=== PATIENT | female | born 1965 | race Caucasian/White ===

== ENCOUNTER → 2017-09-15 | Outpatient (CLI) | payer OTHER ==
[~2017-09-15] MED LIST: ALEVE220 MG PO; ASPRIN; CIPRO500 MG PO; LISINOPRIL/HCTZ1 TAB PO; LORTAB 5/500 501 TAB PO; METRONIDAZOLE500 MG PO; MOBIC 7.5MG7.5 MG PO; ZYLOPRIM 100MG100 MG PO
== END ==
LOC: COL.LAB 08:54
DX: Z01.812 Encounter for preprocedural laboratory examination (principal)

== ENCOUNTER 2017-09-25 08:01 | Outpatient (RCR) | payer OTHER | END 2017-09-28 11:29 | disposition home or self-care (01) | LOC: MKS.ESL.PT 08:01 | DX: Z01.818 Encounter for other preprocedural examination (principal); M25.561 Pain in right knee ==

== ENCOUNTER 2017-10-02 05:12 | Inpatient (IN) | payer OTHER ==
[~2017-10-02] VITALS: Ht 170.2 cm; Wt 115.2 kg
[2017-10-02] VITALS (11 sets, daily range): BP systolic 92–166; BP diastolic 48–454; PULSE 46–71; TEMP 97–98.4
[2017-10-02] MEDS ORDERED: ZESTRIL 5MG5 MG PO (05:46)
[2017-10-02] MEDS ORDERED: RELAFEN750 MG PO (05:47)
[2017-10-02] MEDS ORDERED: PLAQUENIL 200M200 MG PO (05:48)
[2017-10-02] MEDS ORDERED: METHOTREXA2.5 MG/TAB PO (05:49)
[2017-10-02] MEDS ORDERED: FLEXERIL 1010 MG/TAB PO (05:50)
[2017-10-03 03:42] VITALS: BP 146/69; PULSE 62; TEMP 98.3
[2017-10-03 07:54] LABS: HEMATOCRIT 32.3 % (37.0-47.0); HEMOGLOBIN 11.3 g/dl (12.5-16.0)
[2017-10-03 08:01] VITALS: BP 152/66; PULSE 67; TEMP 98.7
[2017-10-03 11:45] VITALS: BP 155/75; PULSE 57; TEMP 98.5
[2017-10-03 16:00] VITALS: BP 154/76; PULSE 73; TEMP 98.7
[2017-10-03 18:54] VITALS: BP 156/73; PULSE 83; TEMP 98.4
[2017-10-03 23:26] VITALS: BP 152/70; PULSE 81; TEMP 98.2
[2017-10-04 03:45] VITALS: BP 156/75; PULSE 79; TEMP 98
[2017-10-04 06:53] LABS: HEMATOCRIT 29.2 % (37.0-47.0); HEMOGLOBIN 9.9 g/dl (12.5-16.0)
[2017-10-04 07:04] VITALS: BP 139/76; PULSE 79; TEMP 99.1
[2017-10-04] MEDS ORDERED: XARELTO10 MG PO (07:20)
[2017-10-04] MEDS ORDERED: NORCO 325 MG-7.1 TAB PO (07:21)
[2017-10-04] MEDS ORDERED: ROXICODONE 55 MG/TAB PO (07:22)
[2017-10-04] MEDS ORDERED: COLACE 100100 MG/CAP PO (07:23)
[2017-10-04 11:28] VITALS: BP 164/87; PULSE 80; TEMP 99
== END 2017-10-04 14:15 | disposition home or self-care (01) | DRG 470 ==
LOC: SDCO 05:12 → EDSTATUS 07:30 → JCC 07:30 → SDCO 07:30 → JCC 09:36
PROVIDERS: Orthopaedic Surgery
PROC: 0SRC0J9 Replacement of Right Knee Joint with Synthetic Substitute, Cemented, Open Approach (ICD-10-PCS; principal; 2017-10-02 07:30)
DX: M17.11 Unilateral primary osteoarthritis, right knee (principal); I10 Essential (primary) hypertension; M06.9 Rheumatoid arthritis, unspecified; Z87.891 Personal history of nicotine dependence; E66.01 Morbid (severe) obesity due to excess calories; Z68.38 Body mass index [BMI] 38.0-38.9, adult
CPT/HCPCS: A4314; A9284; C1713; C1776; J0690; J1100; J2250; J2405; J2704; J2765; J3010; J7030; J7120

== ENCOUNTER 2017-11-09 09:00 | Outpatient (RCR) | payer OTHER ==
[~2017-11-09 09:00] MED LIST changes: +COLACE 100100 MG/CAP PO; +FLEXERIL 1010 MG/TAB PO; +METHOTREXA2.5 MG/TAB PO; +NORCO 325 MG-7.1 TAB PO; +PLAQUENIL 200M200 MG PO; +RELAFEN750 MG PO; +ROXICODONE 55 MG/TAB PO; +XARELTO10 MG PO; +ZESTRIL 5MG5 MG PO
== END 2017-12-27 15:36 | disposition home or self-care (01) ==
LOC: MKS.ESL.PT 09:00
DX: Z47.1 Aftercare following joint replacement surgery (principal); Z96.651 Presence of right artificial knee joint

== ENCOUNTER → 2017-12-14 | Outpatient (CLI) | payer OTHER | LOC: MC.RAD 10:25 | DX: Z12.31 Encounter for screening mammogram for malignant neoplasm of breast (principal) ==

== ENCOUNTER 2023-01-04 08:15 | Outpatient (RCR) | payer BC, OTHER | END 2023-01-05 | disposition home or self-care (01) | LOC: WSPT | DX: M54.16 Radiculopathy, lumbar region (principal) | CPT/HCPCS: G0283-GP ==

== ENCOUNTER 2023-01-25 08:15 | Outpatient (RCR) | payer BC, OTHER | END 2023-02-05 | disposition home or self-care (01) | LOC: WSPT | DX: M54.16 Radiculopathy, lumbar region (principal) | CPT/HCPCS: G0283-GP ==